=== PATIENT | female | born 1935 | race Caucasian/White ===

== ENCOUNTER → 2018-02-03 | Outpatient (CLI) | payer OTHER ==
[~2018-02-03] MED LIST: METO100T5 PO
== END | disposition home or self-care (01) ==
LOC: STAR 08:13
PROVIDERS: ATTEND Internal Medicine
DX: K83.1 Obstruction of bile duct (principal); R94.31 Abnormal electrocardiogram [ECG] [EKG]
CPT/HCPCS: 93005